=== PATIENT | female | born 1965 | race African-American/Black ===

== ENCOUNTER 2020-10-11 04:15 | Day surgery (SDC) | payer OTHER ==
[2020-10-07 17:25] VITALS: BMI 39.4
[2020-10-11] MEDS ORDERED: MIDAZOLAM HCL 2 MG/2 ML SINGLE DOSE VIAL ONE ×2 (07:42→08:41)
[2020-10-11] MEDS ORDERED: PROPOFOL 20 ML ONE ×3 (07:44)
[2020-10-11] MEDS ORDERED: SUCCINYLCHOLINE CHLORIDE 200 MG/10 ML SYRINGE ONE (07:44)
[2020-10-11] MEDS ORDERED: oxyCODONE HCL 5 MG TABLET ONE (10:33)
[2020-10-11 10:52] VITALS: TEMP 97
[2020-10-11 11:19] VITALS: BP 127/86; PULSE 78
== END 2020-10-11 11:19 | disposition home or self-care (01) ==
LOC: JASU-SURG 04:15
PROVIDERS: ATTEND Urology
PROC: 0TF4XZZ Fragmentation in Left Kidney Pelvis, External Approach (ICD-10-PCS; principal; 2020-10-11 08:00)
DX: N20.0 Calculus of kidney (principal)
CPT/HCPCS: 82962